=== PATIENT | female | born 1965 | race Caucasian/White ===

== ENCOUNTER 2020-08-25 20:47 | Inpatient (IN) | payer MEDICARE, MEDICAID ==
[2020-08-25] MEDS ORDERED: Dextrose 5% in Water 1,000 ML IV PRN (21:19)
[2020-08-25] MEDS ORDERED: Calcium Carbonate 500 MG ChewTAB PO PRN (21:19)
[2020-08-25] MEDS ORDERED: Bisacodyl 5 MG TAB PO PRN (21:19)
[2020-08-25] MEDS ORDERED: Dextrose 50% Abboject 50 ML SYRINGE SLOW IVP PRN (21:19)
[2020-08-25] MEDS ORDERED: Guaifenesin DM 100-10/5 ML UDCUP PO PRN (21:19)
[2020-08-25] MEDS ORDERED: Fleet Enema 133 ML BOT PR SCH (21:30)
[2020-08-25] MEDS ORDERED: Milk Of Magnesia 30 ML UDCUP PO SCH (21:30)
[2020-08-25 22:06] LABS: Anion Gap 22 mmol/L (10-20); BUN (Urea Nitrogen) 11 mg/dL (9.8-20.1); Calc. Creatinine Clearance 35 mL/min (70-130); Calcium 9.1 mg/dL (7.8-10.44); Carbon Dioxide 19 mmol/L (22-29); Chloride 94 mmol/L (98-107); Glucose 333 mg/dL (70-105); Lipase 171 U/L (8-78); Potassium 4.2 mmol/L (3.5-5.1); Sodium 131 mmol/L (136-145)
[2020-08-25] MEDS: Sodium Chloride 0.9% 1,000 ML IV SCH (22:24)
[2020-08-25] MEDS: Zolpidem Tartrate 5 MG TAB PO PRN (22:27)
[2020-08-25] MEDS: Nicotine 21 MG PATCH TD SCH (22:28)
[2020-08-25] MEDS: HumaLOG 300 UNITS/3 ML VIAL SC PRN (22:34)
[2020-08-26] MEDS ORDERED: Sodium Chloride 0.9% 500 ML IV SCH (01:00)
[2020-08-26] MEDS ORDERED: Fleet Enema 133 ML BOT PR SCH (01:15)
[2020-08-26] MEDS: HumaLOG 300 UNITS/3 ML VIAL SC PRN ×4 (04:39→21:36)
[2020-08-26 06:10] LABS: #Eosinphils 0.1 10x3/uL (0.0-0.5); #Monocytes 0.4 10x3/uL (0.0-1.1); #Neutrophils 5.9 10x3/uL (1.5-8.4); %Basophils 0.3 % (0.0-2.0); %Eosinophils 0.6 % (0.0-6.0); %Monocytes 4.2 % (0.0-10.0); %Neutrophils 60.6 % (40.0-75.0); Hemoglobin 12.1 g/dL (12.0-15.5); Mean Corpuscular HGB CONC 34.9 g/dL (32.0-36.0); Mean Corpuscular Volume 91.8 fl (81.6-98.3); Mean Platelet Volume 9.2 fl (7.4-10.4); Platelet Count 408 10x3/uL (150-450); RBC Distribution Width 11.6 % (11.5-14.5); Red Blood Cell (RBC) Count 3.78 10x6/uL (3.90-5.03); White Blood Cell (WBC) Count 9.8 10x3/uL (3.5-10.5)
[2020-08-26 06:28] LABS: Anion Gap 15 mmol/L (10-20); BUN (Urea Nitrogen) 9 mg/dL (9.8-20.1); Calc. Creatinine Clearance 39 mL/min (70-130); Calcium 8.2 mg/dL (7.8-10.44); Carbon Dioxide 21 mmol/L (22-29); Cardiac Risk 6.1 (Less than 4.5); Chloride 99 mmol/L (98-107); Cholesterol 166 mg/dl (< 200 Desired); Glucose 306 mg/dL (70-105); HDL Cholesterol 27 mg/dL (>60 Neg Risk); LDL Cholesterol, Calculated 103 mg/dL; Lipase 317 U/L (8-78); Sodium 132 mmol/L (136-145); Triglycerides 179 mg/dL (Less than 150)
[2020-08-26 06:31] LABS: Potassium 2.9 mmol/L (3.5-5.1)
[2020-08-26] MEDS ORDERED: Potassium Chloride 20 MEQ TAB PO SCH ×2 (07:15→10:30)
[2020-08-26] MEDS ORDERED: Lantus 1000 UNITS/10 ML VIAL SC SCH (09:00)
[2020-08-26] MEDS: Magnesium Oxide 400 MG TAB PO SCH ×2 (10:10→21:31)
[2020-08-26] MEDS: metFORMIN 500 MG TAB PO SCH ×2 (10:10→21:32)
[2020-08-26] MEDS: Enoxaparin Sodium 30 MG/0.3 ML SYRINGE SC SCH (10:10)
[2020-08-26] MEDS: Famotidine 20 MG TAB PO SCH (10:10)
[2020-08-26] MEDS: glipiZIDE 5 MG TAB PO SCH ×2 (10:11→16:40)
[2020-08-26] MEDS: Polyethylene Glycol 3350 17 GM Packet PO SCH (10:11)
[2020-08-26] MEDS: Sodium Chloride 0.9% 1,000 ML IV SCH ×3 (10:11→18:31)
[2020-08-26] MEDS: Senokot S 8.6-50 MG TAB PO SCH ×2 (10:11→21:32)
[2020-08-26] MEDS: Acetaminophen 325 MG TAB PO PRN ×3 (10:18→21:32)
[2020-08-26] MEDS: Ondansetron PF 4 MG/2 ML Vial IVP PRN ×2 (10:18→16:40)
[2020-08-26 11:31] LABS: Hemoglobin A1c Greater than 14.0 % (4.0-6.0)
[2020-08-26 17:10] LABS: SARS-CoV-2 PCR by NAA Not Detected (NotDetected)
[2020-08-26] MEDS: Nicotine 21 MG PATCH TD SCH (21:33)
[2020-08-27] MEDS: HumaLOG 300 UNITS/3 ML VIAL SC PRN ×6 (00:06→20:53)
[2020-08-27] MEDS: Zolpidem Tartrate 5 MG TAB PO PRN ×2 (00:13→21:06)
[2020-08-27] MEDS: Acetaminophen 325 MG TAB PO PRN ×2 (04:28→20:50)
[2020-08-27] MEDS: Sodium Chloride 0.9% 1,000 ML IV SCH ×3 (06:37→23:44)
[2020-08-27 08:15] LABS: Anion Gap 12 mmol/L (10-20); BUN (Urea Nitrogen) 5 mg/dL (9.8-20.1); Calc. Creatinine Clearance 62 mL/min (70-130); Calcium 8.2 mg/dL (7.8-10.44); Carbon Dioxide 26 mmol/L (22-29); Chloride 98 mmol/L (98-107); Glucose 245 mg/dL (70-105); Sodium 133 mmol/L (136-145)
[2020-08-27] MEDS ORDERED: Enoxaparin Sodium 30 MG/0.3 ML SYRINGE ONE (08:25)
[2020-08-27 08:40] LABS: #Monocytes 0.1 10x3/uL (0.0-1.1); #Neutrophils 7.5 10x3/uL (1.5-8.4); %Basophils 0.3 % (0.0-2.0); %Eosinophils 0.3 % (0.0-6.0); %Lymphocytes 15.4 % (18.0-47.0); %Neutrophils 82.7 % (40.0-75.0); Hemoglobin 12.4 g/dL (12.0-15.5); Mean Corpuscular HGB CONC 35.1 g/dL (32.0-36.0); Mean Corpuscular Hemoglobin 31.8 pg (27.0-33.0); Mean Corpuscular Volume 90.5 fl (81.6-98.3); Mean Platelet Volume 9.1 fl (7.4-10.4); Platelet Count 406 10x3/uL (150-450); RBC Distribution Width 11.5 % (11.5-14.5)
[2020-08-27] MEDS: Senokot S 8.6-50 MG TAB PO SCH ×2 (08:41→21:29)
[2020-08-27] MEDS: Famotidine 20 MG TAB PO SCH (08:42)
[2020-08-27] MEDS: metFORMIN 500 MG TAB PO SCH ×2 (08:42→20:44)
[2020-08-27] MEDS: Magnesium Oxide 400 MG TAB PO SCH ×2 (08:43→20:44)
[2020-08-27] MEDS: Enoxaparin Sodium 30 MG/0.3 ML SYRINGE SC SCH (08:44)
[2020-08-27] MEDS: Polyethylene Glycol 3350 17 GM Packet PO SCH (08:44)
[2020-08-27 09:00] LABS: Potassium 2.7 mmol/L (3.5-5.1)
[2020-08-27] MEDS ORDERED: Lantus 1000 UNITS/10 ML VIAL SC SCH (09:00)
[2020-08-27] MEDS ORDERED: Potassium Chloride 20 MEQ TAB PO SCH ×2 (09:15→12:00)
[2020-08-27] MEDS: glipiZIDE 5 MG TAB PO SCH ×2 (09:19→16:50)
[2020-08-27] MEDS: Metoclopramide HCl 10 MG TAB PO SCH ×4 (09:19→20:44)
[2020-08-27] MEDS: Ondansetron PF 4 MG/2 ML Vial IVP PRN (16:50)
[2020-08-27 17:26] LABS: Anion Gap 11 mmol/L (10-20); BUN (Urea Nitrogen) 6 mg/dL (9.8-20.1); Calc. Creatinine Clearance 52 mL/min (70-130); Calcium 8.5 mg/dL (7.8-10.44); Carbon Dioxide 26 mmol/L (22-29); Chloride 103 mmol/L (98-107); Glucose 232 mg/dL (70-105); Potassium 3.9 mmol/L (3.5-5.1); Sodium 136 mmol/L (136-145)
[2020-08-27] MEDS: Nicotine 21 MG PATCH TD SCH (20:44)
[2020-08-28] MEDS: HumaLOG 300 UNITS/3 ML VIAL SC PRN ×3 (00:30→12:19)
[2020-08-28 02:20] VITALS: BMI 14.6
[2020-08-28] MEDS: Acetaminophen 325 MG TAB PO PRN ×2 (03:09→07:12)
[2020-08-28 05:46] LABS: #Monocytes 0.7 10x3/uL (0.0-1.1); #Neutrophils 10.2 10x3/uL (1.5-8.4); %Basophils 0.2 % (0.0-2.0); %Eosinophils 0.1 % (0.0-6.0); %Lymphocytes 23.3 % (18.0-47.0); %Monocytes 4.8 % (0.0-10.0); %Neutrophils 71.2 % (40.0-75.0); Hemoglobin 11.1 g/dL (12.0-15.5); Mean Corpuscular HGB CONC 35.1 g/dL (32.0-36.0); Mean Corpuscular Hemoglobin 32.5 pg (27.0-33.0); Mean Corpuscular Volume 92.4 fl (81.6-98.3); Mean Platelet Volume 8.9 fl (7.4-10.4); Platelet Count 384 10x3/uL (150-450); RBC Distribution Width 11.9 % (11.5-14.5); Red Blood Cell (RBC) Count 3.42 10x6/uL (3.90-5.03); White Blood Cell (WBC) Count 14.4 10x3/uL (3.5-10.5)
[2020-08-28 06:43] LABS: Anion Gap 13 mmol/L (10-20); BUN (Urea Nitrogen) 7 mg/dL (9.8-20.1); Calc. Creatinine Clearance 53 mL/min (70-130); Calcium 8.4 mg/dL (7.8-10.44); Carbon Dioxide 24 mmol/L (22-29); Chloride 105 mmol/L (98-107); Glucose 268 mg/dL (70-105); Potassium 3.4 mmol/L (3.5-5.1); Sodium 139 mmol/L (136-145)
[2020-08-28] MEDS ORDERED: Potassium Chloride 20 MEQ TAB PO SCH (08:00)
[2020-08-28] MEDS: Lantus 1000 UNITS/10 ML VIAL SC SCH (08:39)
[2020-08-28] MEDS: Famotidine 20 MG TAB PO SCH (08:40)
[2020-08-28] MEDS: Metoclopramide HCl 10 MG TAB PO SCH ×4 (08:40→21:13)
[2020-08-28] MEDS: Enoxaparin Sodium 30 MG/0.3 ML SYRINGE SC SCH (08:40)
[2020-08-28] MEDS: metFORMIN 500 MG TAB PO SCH ×2 (08:41→21:13)
[2020-08-28] MEDS: Magnesium Oxide 400 MG TAB PO SCH ×2 (08:41→21:13)
[2020-08-28] MEDS: glipiZIDE 5 MG TAB PO SCH ×2 (08:41→18:13)
[2020-08-28] MEDS: Ibuprofen 600 MG TAB PO PRN (08:41)
[2020-08-28] MEDS: Polyethylene Glycol 3350 17 GM Packet PO SCH (08:51)
[2020-08-28] MEDS: Senokot S 8.6-50 MG TAB PO SCH ×2 (08:52→21:13)
[2020-08-28] MEDS ORDERED: Lantus 1000 UNITS/10 ML VIAL SC SCH (09:00)
[2020-08-28 13:31] LABS: Magnesium 1.5 mg/dL (1.6-2.6)
[2020-08-28 13:35] LABS: Phosphorus 1.9 mg/dL (2.3-4.7)
[2020-08-28] MEDS ORDERED: Magnesium Oxide 400 MG TAB PO SCH (13:45)
[2020-08-28 15:25] LABS: Bilirubin Neg (Negative); Blood, Urine Negative (Negative); Clarity Clear (Clear); Glucose, Urine (Dipstick) >=1000 mg/dL (Negative); Ketone, Urine Negative (Negative); Leukocyte 25 (Negative); Nitrite Negative (Negative); Protein, Urine (Dipstick) Negative (Neg-Trace); Specific Gravity, Urine 1.005 (1.002-1.036); Urobilinogen Normal mg/dL (Less than 2)
[2020-08-28 15:44] LABS: Urine Culture Reflex No No
[2020-08-28 16:07] LABS: RBC/HPF 0-3 HPF (0-3)
[2020-08-28 16:08] LABS: Bacteria/HPF 2+ HPF (None Seen); Squamous Epithelial 0-3 HPF (0-3)
[2020-08-28] MEDS: Sodium Chloride 0.9% 1,000 ML IV SCH (19:24)
[2020-08-28] MEDS: Nicotine 21 MG PATCH TD SCH (21:14)
[2020-08-29] MEDS: HumaLOG 300 UNITS/3 ML VIAL SC PRN (05:25)
[2020-08-29] MEDS: Ibuprofen 600 MG TAB PO PRN ×2 (05:25→12:22)
[2020-08-29 06:57] LABS: #Monocytes 0.5 10x3/uL (0.0-1.1); #Neutrophils 7.1 10x3/uL (1.5-8.4); %Basophils 0.3 % (0.0-2.0); %Eosinophils 0.3 % (0.0-6.0); %Lymphocytes 32.7 % (18.0-47.0); %Monocytes 4.5 % (0.0-10.0); %Neutrophils 61.8 % (40.0-75.0); Hemoglobin 11.8 g/dL (12.0-15.5); Mean Corpuscular Hemoglobin 32.5 pg (27.0-33.0); Mean Corpuscular Volume 92.8 fl (81.6-98.3); Mean Platelet Volume 9.1 fl (7.4-10.4); Platelet Count 439 10x3/uL (150-450); Red Blood Cell (RBC) Count 3.63 10x6/uL (3.90-5.03); White Blood Cell (WBC) Count 11.5 10x3/uL (3.5-10.5)
[2020-08-29 07:10] LABS: Anion Gap 13 mmol/L (10-20)
[2020-08-29 07:20] LABS: BUN (Urea Nitrogen) 10 mg/dL (9.8-20.1); Calc. Creatinine Clearance 52 mL/min (70-130); Calcium 8.9 mg/dL (7.8-10.44); Carbon Dioxide 25 mmol/L (22-29); Chloride 100 mmol/L (98-107); Glucose 296 mg/dL (70-105); Magnesium 1.5 mg/dL (1.6-2.6); Phosphorus 2.7 mg/dL (2.3-4.7); Potassium 3.1 mmol/L (3.5-5.1); Sodium 135 mmol/L (136-145)
[2020-08-29] MEDS: Magnesium Oxide 400 MG TAB PO SCH (08:24)
[2020-08-29] MEDS: glipiZIDE 5 MG TAB PO SCH ×2 (08:24→16:04)
[2020-08-29] MEDS: Senokot S 8.6-50 MG TAB PO SCH (08:24)
[2020-08-29] MEDS: Metoclopramide HCl 10 MG TAB PO SCH ×3 (08:24→16:04)
[2020-08-29] MEDS: Famotidine 20 MG TAB PO SCH (08:24)
[2020-08-29] MEDS: metFORMIN 500 MG TAB PO SCH (08:25)
[2020-08-29] MEDS: Enoxaparin Sodium 30 MG/0.3 ML SYRINGE SC SCH (08:26)
[2020-08-29] MEDS: Lantus 1000 UNITS/10 ML VIAL SC SCH (08:26)
[2020-08-29] MEDS ORDERED: Potassium Chloride 20 MEQ TAB PO SCH (08:30)
[2020-08-29] MEDS: Polyethylene Glycol 3350 17 GM Packet PO SCH (08:58)
[2020-08-29] MEDS ORDERED: Magnesium Oxide 400 MG TAB PO SCH (09:00)
[2020-08-29] MEDS ORDERED: PHOS-NAK 1 PKT PACK PO SCH (09:00)
[2020-08-29] MEDS ORDERED: Gabapentin 100 MG CAP PO SCH (11:15)
[2020-08-29] MEDS ORDERED: Cephalexin 250 MG CAP PO SCH (16:00)
[2020-08-29 16:19] VITALS: BP 111/70; TEMP 98.3
[2020-08-30] MEDS ORDERED: Gabapentin 100 MG CAP PO SCH (09:00)
== END 2020-08-29 17:15 | disposition home or self-care (01) | DRG 637 ==
LOC: CSHTELE 20:47 → OBSVTOIN 08-28 09:24
PROVIDERS: ADMIT Internal Medicine; ATTEND Family Medicine
DX: E11.10 Type 2 diabetes mellitus with ketoacidosis without coma (principal); E43 Unspecified severe protein-calorie malnutrition; Z68.1 Body mass index [BMI] 19.9 or less, adult; N39.0 Urinary tract infection, site not specified; Z79.4 Long term (current) use of insulin; Z20.822 Contact with and (suspected) exposure to COVID-19; E86.0 Dehydration; Z71.6 Tobacco abuse counseling; F17.210 Nicotine dependence, cigarettes, uncomplicated; Z83.3 Family history of diabetes mellitus; Z80.3 Family history of malignant neoplasm of breast; K59.01 Slow transit constipation; Z79.899 Other long term (current) drug therapy; E87.6 Hypokalemia; E83.39 Other disorders of phosphorus metabolism; E83.42 Hypomagnesemia; E11.42 Type 2 diabetes mellitus with diabetic polyneuropathy; E11.65 Type 2 diabetes mellitus with hyperglycemia
CPT/HCPCS: 36415; 36416; 80048; 80061; 81001; 82010; 83036; 83690; 83735; 84100; 84443; 85025; 87077; 87086; 87186; 87635; 96372; 96374; 96376; G0378; J1650; J1815; J2405; J7030; J7050; U0003; U0005